=== PATIENT | female | born 1985 | race Two or more races ===

== ENCOUNTER 2024-05-07 00:04 | Inpatient (IN) | payer MEDICAID, OTHER ==
[~2024-05-07] VITALS: Ht 157.5 cm; Wt 113.1 kg
[2024-05-07] MEDS: SODIUM CHLORIDE 0.9% 1,000 ML IV ONE (01:15)
[2024-05-07] MEDS: IOHEXOL 300 MG/ML 100ML BOTTLE IJ ONE (01:33)
[2024-05-07 01:34] LABS: Urine Bacteria FEW /hpf (None Seen); Urine Blood Negative /uL (Negative); Urine Clarity Clear (Clear); Urine Color Light-Yellow (Yellow); Urine Protein, UAD TRACE (Negative); Urine Specific Gravity 1.016 (1.001-1.035); Urine Urobilinogen Normal (Negative); Urine WBC 2 /hpf (0 - 5)
[2024-05-07 01:35] LABS: Basophils # (auto) 0.1 10 ^3/uL (0-0.2); Basophils % (auto) 0.9 % (0.0-2.0); Eosinophils # (auto) 0.5 10 ^3/uL (0-0.8); Hematocrit 41.6 % (36.0-46.0); Hemoglobin 14.2 g/dL (12.2-16.2); Lymphocytes % (auto) 27.8 % (10.0-50.0); Mean Corpuscular Hemoglobin 29.4 pg (28.0-32.0); Mean Corpuscular Hgb Conc. 34.2 g/dL (32.0-36.0); Monocytes # (auto) 0.6 10 ^3/uL (0-1.3); Monocytes % (auto) 5.5 % (0.0-12.0); Neutrophils # (auto) 6.6 10 ^3/uL (1.6-8.6); Neutrophils % (auto) 60.8 % (37.0-80.0); Platelet Count (auto) 404 10^3/uL (140-450); Red Blood Cells 4.84 10^6/uL (4.0-5.20); Red Cell Distribution Width 13.1 % (11.8-14.3); White Blood Cell 10.8 10^3/uL (4.4-10.8)
[2024-05-07 01:56] LABS: Alanine Aminotransferase 61 U/L (7-40); Albumin 4.5 g/dL (3.2-4.8); Alkaline Phosphatase 112 U/L (46-116); Anion Gap 6 (5-15); Aspartate Aminotransferase 50 U/L (13-40); BUN/Creatinine Ratio 11.5 (10.0-20.0); Bilirubin, Total 0.2 mg/dL (0.2-1.0); Blood Urea Nitrogen 9 mg/dL (9-23); Calcium 9.6 mg/dL (8.7-10.4); Carbon Dioxide 25 mmol/L (20-30); Chloride 103 mmol/L (98-107); Glucose 267 mg/dL (74-106); Potassium 3.9 mmol/L (3.5-5.1); Sodium 134 mmol/L (136-145); Total Protein 7.8 g/dL (5.7-8.2)
[2024-05-07] MEDS: ONDANSETRON HCL 4 MG/2 ML VIAL IV ONE (02:40)
[2024-05-07] MEDS: FAMOTIDINE (10MG/ML) 2ML VL IV ONE (02:40)
[2024-05-07] MEDS: MORPHINE SULFATE 4 MG/ML SYR/VIAL IV ONE (02:40)
[2024-05-07 04:33] VITALS: O2SAT 95
[2024-05-07] MEDS ORDERED: DEXTROSE (50%) 50ML SYRG IV PRN (09:15)
[2024-05-07] MEDS ORDERED: PANTOPRAZOLE 40 MG/10 ML VIAL INJ IV ONE (09:15)
[2024-05-07] MEDS ORDERED: DOCUSATE SOD 100 MG CAP PO PRN (09:15)
[2024-05-07] MEDS: SODIUM CHLORIDE 0.9% 1,000 ML IV SCH (09:39)
[2024-05-07] MEDS: MORPHINE SULFATE INJ 2 MG/ml SYRG IV PRN (09:40)
[2024-05-07] MEDS: ONDANSETRON HCL 4 MG/2 ML VIAL IV PRN (09:40)
[2024-05-07 09:47] VITALS: PULSE 79; RESP 19; O2SAT 97
[2024-05-07] MEDS ORDERED: NITROGLYCERIN 0.4 MG SL TAB SL PRN (10:45)
[2024-05-07] MEDS: InsuLIN REG 1unit/0.01ml Soln (100units/ml) SC SCH (10:52)
[2024-05-07] MEDS: ACCU-CHEK COMFORT CURVE STRIP VI SCH (10:54)
[2024-05-07 12:13] LABS: Triglycerides 331 mg/dL (< 150)
[2024-05-07 12:14] LABS: LDL Cholesterol 224 mg/dL (< 100)
[2024-05-07 12:15] LABS: Cholesterol 300 mg/dL (< 200); HDL Cholesterol 37 mg/dL (40-59)
[2024-05-07 12:16] LABS: Lipase 41 U/L (12-53)
[2024-05-07 14:08] LABS: INR 0.97 (0.9-1.15); Partial Thromboplastin Time 26.5 SEC (24.5-34.5); Prothrombin Time 10.5 sec (9.3-11.8)
[2024-05-07] MEDS: hydrALAZINE HCL 20 MG/ML VL IV PRN (14:39)
[2024-05-07 16:11] LABS: Amphetamine Screen, Urine Neg (NEGATIVE); Barbiturate Scree,Urine Neg (NEGATIVE); Benzodiazephine Screen, Urine Neg (NEGATIVE); Cocaine Screen, Urine Neg (NEGATIVE); Opiate Scree,Urine Neg (NEGATIVE)
[2024-05-07 16:12] LABS: Cannabinoid Screen, Urine Pos (NEGATIVE); Phencyclidine Screen, Urine Neg (NEGATIVE)
[2024-05-07 20:20] VITALS: BP 148/88; PULSE 106; RESP 20; TEMP 98.1; O2SAT 97
[2024-05-07 21:44] VITALS: PULSE 106; RESP 20; O2SAT 97
[2024-05-07] MEDS ORDERED: PANTOPRAZOLE 40 MG/10 ML VIAL INJ IV SCH (22:00)
[2024-05-07 22:14] LABS: Hematocrit 42.1 % (36.0-46.0); Hemoglobin 14.5 g/dL (12.2-16.2)
[2024-05-07] MEDS: PNEUMOCOCCAL VACC POLYS 25 MCG/0.5 ML VIAL IM ONE (22:15)
[2024-05-07] MEDS ORDERED: ALBUAER3 IN (22:17)
[2024-05-07] MEDS: GOLYTELY 4L KIT PO ONE (22:30)
[2024-05-08] VITALS (8 sets, daily range): BP systolic 137–159; BP diastolic 79–94; PULSE 98–110; RESP 18–20; TEMP 97.8–98.3; O2SAT 93–97
[2024-05-08] MEDS: GOLYTELY 4L KIT PO ONE (06:00)
[2024-05-08] MEDS: MAGNESIUM CITRATE SOLUTION 300 ML BTL PO ONE (06:00)
[2024-05-08 07:46] LABS: Alanine Aminotransferase 59 U/L (7-40); Albumin 4.5 g/dL (3.2-4.8); Alkaline Phosphatase 97 U/L (46-116); Anion Gap 13 (5-15); Aspartate Aminotransferase 63 U/L (13-40); BUN/Creatinine Ratio 9.7 (10.0-20.0); Bilirubin, Total 0.6 mg/dL (0.2-1.0); Blood Urea Nitrogen 6 mg/dL (9-23); Calcium 9.2 mg/dL (8.7-10.4); Carbon Dioxide 21 mmol/L (20-30); Chloride 100 mmol/L (98-107); Glucose 181 mg/dL (74-106); Potassium 3.7 mmol/L (3.5-5.1); Sodium 134 mmol/L (136-145); Total Protein 7.7 g/dL (5.7-8.2)
[2024-05-08 07:49] LABS: Basophils # (auto) 0 10 ^3/uL (0-0.2); Basophils % (auto) 0.4 % (0.0-2.0); Eosinophils # (auto) 0.3 10 ^3/uL (0-0.8); Eosinophils % (auto) 2.7 % (0.0-7.0); Hematocrit 40.4 % (36.0-46.0); Hemoglobin 14.1 g/dL (12.2-16.2); Lymphocytes # (auto) 1.6 10 ^3/uL (0.4-5.4); Lymphocytes % (auto) 15.7 % (10.0-50.0); Mean Corpuscular Hemoglobin 29.9 pg (28.0-32.0); Mean Corpuscular Volume 85.4 fL (80.0-100.0); Monocytes # (auto) 0.5 10 ^3/uL (0-1.3); Monocytes % (auto) 4.5 % (0.0-12.0); Neutrophils # (auto) 7.8 10 ^3/uL (1.6-8.6); Neutrophils % (auto) 76.7 % (37.0-80.0); Platelet Count (auto) 387 10^3/uL (140-450); Red Blood Cells 4.73 10^6/uL (4.0-5.20); Red Cell Distribution Width 13.2 % (11.8-14.3); White Blood Cell 10.2 10^3/uL (4.4-10.8)
[2024-05-08] MEDS: SODIUM CHLORIDE 0.9% 1,000 ML IV SCH (08:15)
[2024-05-08 09:50] LABS: Hematocrit 41.8 % (36.0-46.0); Hemoglobin 14.7 g/dL (12.2-16.2)
[2024-05-08] MEDS: PANTOPRAZOLE 40 MG/10 ML VIAL INJ IV SCH (10:00)
[2024-05-08] MEDS ORDERED: NALOXONE HCL 0.4 MG/ML VIAL ONE (11:19)
[2024-05-08] MEDS ORDERED: SODIUM CHLORIDE LOCK 10 ML ONE (11:19)
[2024-05-08] MEDS ORDERED: FLUMAZENIL 0.1 MG/ML INJ 10ML MDV IV ONE (11:19)
[2024-05-08] MEDS: MIDAZOLAM HCL 5 MG/ML-1ML VIAL ONE (12:14)
[2024-05-08] MEDS: diphenhdrAMINE HCL 50 MG/1 ML VL ONE (12:14)
[2024-05-08] MEDS: fentaNYL CITRATE 100 MCG/2 ML VL ONE (12:14)
[2024-05-08] MEDS ORDERED: DEXTROSE (50%) 50ML SYRG IV PRN (14:45)
[2024-05-08] MEDS ORDERED: ATOR40TA52 PO (17:16)
[2024-05-08] MEDS ORDERED: LINA5TAB PO (17:16)
[2024-05-08] MEDS ORDERED: METF-489 PO (17:16)
[2024-05-08] MEDS ORDERED: PANT40T PO (17:16)
[2024-05-08] MEDS ORDERED: LISI2.5T47 PO (17:20)
[2024-05-08] MEDS: InsuLIN REG 1unit/0.01ml Soln (100units/ml) SC SCH (17:50)
[2024-05-08] MEDS: ACCU-CHEK COMFORT CURVE STRIP VI SCH (17:50)
[2024-05-08] MEDS: ATORVASTATIN 20 MG TAB PO SCH (21:08)
[2024-05-08 22:02] LABS: Hematocrit 41.7 % (36.0-46.0); Hemoglobin 14.1 g/dL (12.2-16.2)
[2024-05-09 01:00] VITALS: BP 158/93; PULSE 99; RESP 19; TEMP 97.6; O2SAT 96
[2024-05-09 05:00] VITALS: BP 136/83; PULSE 102; RESP 20; TEMP 97.9; O2SAT 96
[2024-05-09 07:27] LABS: Basophils # (auto) 0 10 ^3/uL (0-0.2); Basophils % (auto) 0.5 % (0.0-2.0); Eosinophils # (auto) 0.3 10 ^3/uL (0-0.8); Eosinophils % (auto) 3.7 % (0.0-7.0); Hematocrit 40.6 % (36.0-46.0); Hemoglobin 13.8 g/dL (12.2-16.2); Lymphocytes % (auto) 23.2 % (10.0-50.0); Mean Corpuscular Hemoglobin 29.1 pg (28.0-32.0); Mean Corpuscular Volume 85.8 fL (80.0-100.0); Monocytes # (auto) 0.5 10 ^3/uL (0-1.3); Monocytes % (auto) 5.4 % (0.0-12.0); Neutrophils # (auto) 5.9 10 ^3/uL (1.6-8.6); Neutrophils % (auto) 67.2 % (37.0-80.0); Nucleated Red Blood Cells % 0.1 %; Platelet Count (auto) 365 10^3/uL (140-450); Red Blood Cells 4.74 10^6/uL (4.0-5.20); Red Cell Distribution Width 13.2 % (11.8-14.3); White Blood Cell 8.8 10^3/uL (4.4-10.8)
[2024-05-09 07:44] LABS: Alanine Aminotransferase 55 U/L (7-40); Albumin 4.1 g/dL (3.2-4.8); Alkaline Phosphatase 92 U/L (46-116); Anion Gap 7 (5-15); Aspartate Aminotransferase 65 U/L (13-40); BUN/Creatinine Ratio 10.1 (10.0-20.0); Bilirubin, Total 0.6 mg/dL (0.2-1.0); Blood Urea Nitrogen 7 mg/dL (9-23); Carbon Dioxide 26 mmol/L (20-30); Chloride 103 mmol/L (98-107); Glucose 163 mg/dL (74-106); Potassium 3.5 mmol/L (3.5-5.1); Sodium 136 mmol/L (136-145); Total Protein 7.3 g/dL (5.7-8.2)
[2024-05-09 08:20] VITALS: PULSE 98; RESP 18; O2SAT 96
[2024-05-09 09:00] VITALS: BP 150/78; PULSE 98; RESP 17; TEMP 98.2; O2SAT 96
[2024-05-09 09:33] LABS: Hepatitis B Surface Antigen Negative (Negative)
[2024-05-09 09:55] LABS: Hepatitis B Core IgM Negative
[2024-05-09 09:56] LABS: Hepatitis C Antibody Negative (Negative)
[2024-05-09 11:38] LABS: Free T3 2.68 pg/mL (2.3-4.2)
[2024-05-09 11:39] LABS: Free T4 (Free Thyroxine) 1.2 ng/dL (0.89-1.76)
[2024-05-09 11:58] VITALS: BP 150/91; PULSE 98; RESP 17; TEMP 36.8; O2SAT 96
[2024-05-09 13:26] VITALS: BP 143/93; PULSE 100; RESP 17; TEMP 97.9; O2SAT 97
[2024-05-09 16:34] LABS: Hepatitis A Ab IgM Negative
== END 2024-05-09 14:30 | disposition home or self-care (01) ==
LOC: ER 00:04 → OVERFLOW 10:37 → CENTRAL 10:37
PROVIDERS: ADMIT Internal Medicine; ATTEND Internal Medicine
PROC: 0DJD8ZZ Inspection of Lower Intestinal Tract, Via Natural or Artificial Opening Endoscopic (ICD-10-PCS; principal; 2024-05-08 12:10)
DX: K80.50 Calculus of bile duct without cholangitis or cholecystitis without obstruction (principal); K76.0 Fatty (change of) liver, not elsewhere classified; E11.9 Type 2 diabetes mellitus without complications; K64.8 Other hemorrhoids; E78.5 Hyperlipidemia, unspecified; E66.01 Morbid (severe) obesity due to excess calories; K57.30 Diverticulosis of large intestine without perforation or abscess without bleeding; J45.909 Unspecified asthma, uncomplicated; I16.0 Hypertensive urgency; K21.9 Gastro-esophageal reflux disease without esophagitis; Z88.1 Allergy status to other antibiotic agents; Z88.8 Allergy status to other drugs, medicaments and biological substances; Z68.42 Body mass index [BMI] 45.0-49.9, adult; Z83.719 Family history of colon polyps, unspecified; Z98.891 History of uterine scar from previous surgery
CPT/HCPCS: 36415; 45378; 74177; 76705; 80053; 80061; 80074; 80307; 81001; 81025; 82270; 82962; 83036; 83690; 83735; 84439; 84443; 84481; 85014; 85018; 85025; 85048; 85610; 85730; 96361; 96374; 96375; 96376; G0378; J1815; J2250; J2405; J2470; J3490

== ENCOUNTER 2024-10-27 23:08 | Emergency (ER) | payer MEDICAID ==
[~2024-10-27] VITALS: Ht 162.6 cm; Wt 99.5 kg
[~2024-10-27 23:08] MED LIST: ALBUAER3 IN; ATOR40TA52 PO; LINA5TAB PO; LISI2.5T47 PO; METF-489 PO; PANT40T PO
[2024-10-27 23:41] VITALS: BP 137/78; PULSE 96; RESP 14; TEMP 97.9; O2SAT 94
[2024-10-28] MEDS: KETOROLAC TROMETH 60MG/2ML VIAL IM ONE (00:11)
[2024-10-28] MEDS: OXYCODONE W/ ACETAMINOPHEN 5/325MG TABLET PO ONE (00:11)
--- NOTE | 2024-10-28 00:39 | ED.PDOC ---
Back pain HPI HPI Comments PT WAS GETTING OFF THE FLOOR, FELT A "POP" IN HER LOWER BACK, CAUSING HER LEGS TO BUCKLE, PT BECAME DIZZY. CURRENTLY NO DIZZINESS, PT C/O MORE RIGHT BACK PAIN, RADIATING TO THE RIGHT BUTTOCK.. Denies numbness, weakness, loss of bowel bladder control, or saddle anesthesia. Chief Complaint: Back Pain Time Seen by MD: 23:24 Reviewed Notes: Nurses Notes, Medications, Allergies Allergies: Coded Allergies: Erythromycin (Verified Allergy, Unknown, 05/07/24) Montelukast (Verified Allergy, Unknown, 05/07/24) Nifedipine (Verified Allergy, Unknown, 05/07/24) Sulfisoxazole (Verified Allergy, Unknown, 05/07/24) Home Meds Active Scripts Lisinopril (Lisinopril) 2.5 Mg Tab, 5 MG PO DAILY for 30 Days, #60 TAB 2 Refills Prov:CHAVO KAY RESIDENT 05/08/24 Pantoprazole Sodium Sesquihydr (Pantoprazole Sodium) 40 Mg Tab, 40 MG PO DAILY for 30 Days, #30 TAB 2 Refills Prov:CHAVO KAY [facility] 05/08/24 Linagliptin Base (TRADJENTA) 5 Mg Tab, 1 TAB PO DAILY for 30 Days, #30 TAB 2 Refills Prov:CHAVO KAY [facility] [place] 05/08/24 Atorvastatin Calcium (ATORVASTATIN CALCIUM) 40 Mg Tab, 20 MG PO DAILY for 30 Days, #15 TAB 2 Refills Prov:CHAVO KAY [facility] [place] 05/08/24 Metformin Hydrochloride (METFORMIN HCL ER) 500 Mg Tab, 1 TAB PO DAILY for 30 Days, #30 TAB 2 Refills Prov:CHAVO KAY [facility] [place] 05/08/24 Reported Medications Albuterol Sulfate (VENTOLIN MDI) 90 Mcg Ih, 90 MCG IN, INH 05/07/24 Information Source: Patient Mode of Arrival: Ambulatory Past Medical History PAST MEDICAL HISTORY: Asthma 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: No Pertinent ELEVATOR EXAMINER AND ADJUSTER History Family History Family History: Reviewed,noncontributory to illness, No family hx of Cancer, No family hx of DM, No family hx of Heart jing, No family hx of HTN, No family hx ofKidney jing, No family hx of Liver jing, No family hx of Lung jing, No family hx of Stroke Social History Smoker: Non-Smoker Alcohol: Denies ETOH Use Drugs: Denies Drug Use Lives In: Home Constitutional: denies: chills, diaphoresis, fatigue, fever, malaise, sweats, weakness, others EENTM: denies: blurred vision, double vision, ear bleeding, ear discharge, ear drainage, ear pain, ear ringing, eye pain, eye redness, hearing loss, mouth pain, mouth swelling, nasal discharge, nose bleeding, nose congestion, nose p ain, photophobia, tearing, throat pain, throat swelling, voice changes, others Respiratory: denies: cough, hemoptysis, orthopnea, SOB at rest, shortness of breath, SOB with excertion, stridor, wheezing, others Cardiovascular: denies: chest pain, dizzy spells, diaphoresis, Dyspnea on exertion, edema, irregular heart beat, left arm pain, lightheadedness, palpitations, PND, syncope, others Gastrointestinal: denies: abdomen distended, abdominal pain, blood streaked bowels, constipated, diarrhea, dysphagia, difficulty swallowing, hematemesis, melena, nausea, poor appetite, poor fluid intake, rectal bleeding, rectal pain, vomiting, others Genitourinary: denies: abnormal vagina bleeding, burning, dyspareunia, dysuria, flank pain, frequency, hematuria, incontinence, pain, , vagina discharge, urgency, others Neurological: denies: dizziness, fainting, headache, left sided numbness, left sided weakness, numbness, paresthesia, pre-existing deficit, right sided numbness, right sided weakness, seizure, speech problems, tingling, tremors, weakness, others Musculoskeletal: reports: back pain; denies: gout, joint pain, joint swelling, muscle pain, muscle stiffness, neck pain, others Integumetry: denies: bruises, change in color, change in hair/nails, dryness, laceration, lesions, lumps, rash, wounds, others Allergic/Immunocompromised: denies: Difficulty Healing, Frequent Infections, Hives, Itching, others Hematologic/Lymphatic: denies: anemia, blood clots, easy bleeding, easy bruising, swollen glands, others Psychiatric: denies: anxiety, bipolar disorder, depression, hopeless, panic disorder, schizophrenia, sleepless, suicidal, others Physical Exam General Appearance: No Apparent Distress, Normal HEENT: Pharynx Normal Neck: Full Range of Motion, Normal Respiratory: Lungs Clear, No Respiratory Distress, Normal Breath Sounds Cardiovascular: No Edema, No Murmur, Normal Peripheral Pulses, Regular Rate/Rhythm Breast Exam: Deferred Gastrointestinal: Non Tender, Soft Genitalia: Deferred Pelvic: Deferred Rectal: Deferred Extremities: Normal capillary refill, Normal inspection, Normal range of motion, Non-tender, No pedal edema Musculoskeletal : Location: Right Extremity Location: Back (No tenderness palpated over L1 through L5 without crepitus and step-offs. Noted to right lateral lower back musculature with noted spasms. Negative straight leg raise bilateral negative footdrop strength sensory motion intact positive pedal pulses) Apperance: Normal Neurologic: Alert, hospital carrier II-XII nml as Tested, No Motor Deficits, Normal Affect, Normal Mood, No Sensory Deficits Cerebellar Function: Normal Reflexes: Normal Skin: Dry, Normal Color, Warm Lymphatic: No Adenopathy Was a procedure done? Was a procedure done?: No Back Pain Differential Dx Differential Diagnosis: Fracture, Musculoskeletal Pain, Strain X-Ray, Labs, Meds, VS Vital Signs Date Time Temp Pulse Resp B/P (MAP) Pulse Ox O2 Delivery O2 Flow Rate FiO2 10/27/24 23:41 97.9 96 14 137/78 (97) 94 97.9 10/27/24 23:41 96 14 94 Room Air 10/27/24 23:20 97.9 96 14 137/78 (97) 94 Current Medications Medications (Trade) Dose Ordered Sig/Justice Route Start Time Stop Time Status Last Admin Ketorolac Tromethamine (Toradol Injection) 60 mg ONCE ONCE IM 10/27/24 23:45 10/27/24 23:46 DC 10/28/24 00:11 Oxycodone/ Acetaminophen (Percocet 5/ 325MG Tablet) 1 tab ONCE ONCE PO 10/27/24 23:45 10/27/24 23:46 DC 10/28/24 00:11 X-Ray, Labs, Meds, VS Comment NORMAL X RAY RESULT: INTERPRETED BY ME. NO ACUTE FINDINGS. NO FRACTURES OR DISLOCATION. PENDING RADIOLOGIST REPORT PATIENT GIVEN TORADOL 60 MG IM AND PERCOCET 5 MG P.O.. REPORTS IMPROVEMENT IN PAIN AND FUNCTION REQUESTING DISCHARGE AT THIS TIME. SCRIPT MUSCLE RELAXER AND MEDROL DOSEPAK. ADVISED PATIENT THE IMPORTANCE OF FOLLOWING UP WITH HER PCP IN 1-2 DAYS SOONER IF PAIN WORSENS CONSIDER FURTHER IMAGING SUCH MRI CONSIDER REFERRAL FOR PHYSICAL THERAPY. PATIENT AGREES WITH DISCHARGE PLAN OF CARE INDICATES UNDERSTANDING. Time of 1ST Reevaluation: 00:58 Reevaluation 1ST: Improved Patient Education/Counseling: Diagnosis, Treatment, Prognosis, Need For Follow Up Family Education/Counseling: No Family Present Departure 1 Departure Time of Disposition: 00:58 Impression: Primary Impression: Lumbar sprain Qualified Codes: S33.5XXA - Sprain of ligaments of lumbar spine, initial encounter Disposition: HOME / SELF CARE / HOMELESS Condition: Stable e-Prescriptions Tizanidine Hydrochloride (Tizanidine Hcl) 4 Mg Tab 4 MG PO BID PRN for 5 Days, #10 TAB Prov: NANETTE THOMAS 10/28/24 Methylprednisolone (Medrol Dosepak) 4 Mg Silas 4 MG PO UD for 6 Days, #21 TAB UAD Prov: NANETTE THOMAS 10/28/24 Discharged With: Significant Other Critical Care Note Critical Care Time?: No Stability Stability form required: No NANETTE THOMAS Oct 28, 2024 00:39
--- NOTE | 2024-10-28 00:48 | DVH ---
INDICATION: injury/pain COMPARISON: None TECHNIQUE: AP and lateral radiographs of the lumbar spine. FINDINGS: There is a normal alignment of the lumbar spine. The lumbar vertebral bodies, T11 and T12 are normal in appearance with no compression fracture. The intervertebral disc spaces are preserved. Facet and S I joints appear unremarkable. IMPRESSION: No abnormality demonstrated.
[2024-10-28] MEDS ORDERED: TIZA-142 PO (00:57)
[2024-10-28] MEDS ORDERED: METH4PAK PO (00:57)
== END 2024-10-28 01:05 | disposition home or self-care (01) ==
LOC: ER 23:08
DX: S33.5XXA Sprain of ligaments of lumbar spine, initial encounter (principal); J45.909 Unspecified asthma, uncomplicated; Z79.84 Long term (current) use of oral hypoglycemic drugs; Z79.899 Other long term (current) drug therapy; Z98.890 Other specified postprocedural states; Z88.1 Allergy status to other antibiotic agents; Z88.2 Allergy status to sulfonamides
CPT/HCPCS: 72100; 96372; 99283; J1885

== ENCOUNTER 2024-12-06 21:23 | Emergency (ER) | payer MEDICAID ==
[~2024-12-06] VITALS: Ht 162.6 cm; Wt 95.5 kg
--- NOTE | 2024-12-06 23:52 | ED.PDOC ---
Eye-HPI HPI Comments Pt c/o left ear pain since 0400 this morning. Pt says her current pain is 7/10, has not taken any medications. Reports hearing is muffled. Denies any other symptoms Chief Complaint: Earache Time Seen by MD: 21:28 Reviewed Notes: Nurses Notes, Medications, Allergies Allergies: Coded Allergies: Erythromycin (Verified Allergy, Unknown, 05/07/24) Montelukast (Verified Allergy, Unknown, 05/07/24) Nifedipine (Verified Allergy, Unknown, 05/07/24) Sulfisoxazole (Verified Allergy, Unknown, 05/07/24) Home Meds Active Scripts Methylprednisolone (Medrol Dosepak) 4 Mg Silas, 4 MG PO UD for 6 Days, #21 TAB UAD Prov:[facility] 12/06/24 Cefdinir (Cefdinir) 300 Mg Cap, 1 CAP PO BID for 7 Days, #14 CAP Prov:[facility] 12/06/24 Lisinopril (Lisinopril) 2.5 Mg Tab, 5 MG PO DAILY for 30 Days, #60 TAB 2 Refills Prov:CHAVO KAY [facility] 05/08/24 Pantoprazole Sodium Sesquihydr (Pantoprazole Sodium) 40 Mg Tab, 40 MG PO DAILY for 30 Days, #30 TAB 2 Refills [facility] 05/08/24 Linagliptin Base (TRADJENTA) 5 Mg Tab, 1 TAB PO DAILY for 30 Days, #30 TAB 2 Refills Prov[facility] 05/08/24 Atorvastatin Calcium (ATORVASTATIN CALCIUM) 40 Mg Tab, 20 MG PO DAILY for 30 Days, #15 TAB 2 Refills Prov:CHAVO KAY [facility] 05/08/24 Metformin Hydrochloride (METFORMIN HCL ER) 500 Mg Tab, 1 TAB PO DAILY for 30 Days, #30 TAB 2 Refills Prov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: No Pertinent HR PAYROLL COORDINATOR History Family History Family History: Reviewed,noncontributory to illness, No family hx of Cancer, No family hx of DM, No family hx of Heart jing, No family hx of HTN, No family hx ofKidney jing, No family hx of Liver jing, No family hx of Lung jing, No family hx of Stroke Social History Smoker: Non-Smoker Alcohol: Denies ETOH Use Drugs: Denies Drug Use Lives In: Home Constitutional: denies: chills, diaphoresis, fatigue, fever, malaise, sweats, weakness, others EENTM: reports: ear pain; denies: blurred vision, double vision, ear bleeding, ear discharge, ear drainage, ear ringing, eye pain, eye redness, hearing loss, mouth pain, mouth swelling, nasal discharge, nose bleeding, nose congestion, nose pain, photophobia, tearing, throat pain, throat swelling, voice changes, others Respiratory: denies: cough, hemoptysis, orthopnea, SOB at rest, shortness of breath, SOB with excertion, stridor, wheezing, others Cardiovascular: denies: chest pain, dizzy spells, diaphoresis, Dyspnea on exertion, edema, irregular heart beat, left arm pain, lightheadedness, palpitations, PND, syncope, others Gastrointestinal: denies: abdomen distended, abdominal pain, blood streaked bowels, constipated, diarrhea, dysphagia, difficulty swallowing, hematemesis, melena, nausea, poor appetite, poor fluid intake, rectal bleeding, rectal pain, vomiting, others Genitourinary: denies: abnormal vagina bleeding, burning, dyspareunia, dysuria, flank pain, frequency, hematuria, incontinence, pain, , vagina discharge, urgency, others Neurological: denies: dizziness, fainting, headache, left sided numbness, left sided weakness, numbness, paresthesia, pre-existing deficit, right sided numbness, right sided weakness, seizure, speech problems, tingling, tremors, weakness, others Musculoskeletal: denies: back pain, gout, joint pain, joint swelling, muscle pain, muscle stiffness, neck pain, others Integumetry: denies: bruises, change in color, change in hair/nails, dryness, laceration, lesions, lumps, rash, wounds, others Allergic/Immunocompromised: denies: Difficulty Healing, Frequent Infections, Hives, Itching, others Hematologic/Lymphatic: denies: anemia, blood clots, easy bleeding, easy bruising, swollen glands, others Endocrine: denies: excessive hunger, excessive sweating, excessive thirst, excessive urination, flushing, intolerance to cold, intolerance to heat, unexplained weight gain, unexplained weight loss, others Psychiatric: denies: anxiety, bipolar disorder, depression, hopeless, panic disorder, schizophrenia, sleepless, suicidal, others Physical Exam General Appearance: No Apparent Distress, Normal HEENT: Pharynx Normal, TM Abnormal (L) (TM ERYTHEMIC AND BULGING INTACT NO NOTED DRAINAGE EAR CANAL SWELLING OR DRAINAGE) Neck: Full Range of Motion, Non-Tender Respiratory: Lungs Clear, No Respiratory Distress, Normal Breath Sounds Cardiovascular: No Murmur, Normal Peripheral Pulses, Regular Rate/Rhythm Breast Exam: Deferred Gastrointestinal: No Organomegaly, Non Tender, No Pulsatile Mass, Normal Bowel Sounds, Soft Genitalia: Deferred Pelvic: Deferred Rectal: Deferred Extremities: Normal capillary refill, Normal inspection, Normal range of mo tion, Non-tender, No pedal edema Musculoskeletal : Apperance: Normal Neurologic: Alert, long term care social worker II-XII nml as Tested, No Motor Deficits, Normal Affect, Normal Mood, No Sensory Deficits Cerebellar Function: Normal Reflexes: Normal Skin: Dry, Normal Color, Warm Lymphatic: No Adenopathy Was a procedure done? Was a procedure done?: No EENT DIFF Eye: N/A Ear: Foreign Body, Otitis Externa, Barotrauma, Perforation, Pharyngitis X-Ray, Labs, Meds, VS Vital Signs Date Time Temp Pulse Resp B/P (MAP) Pulse Ox O2 Delivery O2 Flow Rate FiO2 12/06/24 23:54 98.6 100 13 132/90 (104) 98 98.6 12/06/24 23:54 100 13 98 Room Air 12/06/24 21:33 98.3 115 18 129/84 (99) 95 98.3 Current Medications Medications (Trade) Dose Ordered Sig/Justice Route Start Time Stop Time Status Last Admin Ketorolac Tromethamine (Toradol Injection) 60 mg ONCE ONCE IM 12/07/24 00:00 12/07/24 00:01 DC 12/07/24 00:06 Acetaminophen/ Hydrocodone Bitart ([place] 5/325MG Tab) 1 tab ONCE ONCE PO 12/07/24 00:00 12/07/24 00:01 DC 12/07/24 00:07 X-Ray, Labs, Meds, VS Comment PATIENT GIVEN TORADOL 60 MG IM AND NORCO 5 MG P.O. REPORTS IMPROVEMENT IN PAIN REQUESTING DISCHARGE AT THIS TIME. CEFDINIR AND MEDROL DOSEPAK. TAKE MEDICATIONS PRESCRIBED SIDE EFFECTS DISCUSSED. FOLLOW UP WITH YOUR PCP IN 2- 3 DAYS. ER RETURN PRECAUTIONS GIVEN PATIENT INDICATES UNDERSTANDING AGREES WITH DISCHARGE PLAN OF CARE. Time of 1ST Reevaluation: 23:55 Reevaluation 1ST: Improved Patient Education/Counseling: Diagnosis, Treatment, Prognosis, Need For Follow Up Family Education/Counseling: Diagnosis, Treatment, Prognosis, Need For Follow U p Departure 1 Departure Time of Disposition: 23:52 Impression: Primary Impression: Otitis media Qualified Codes: H66.92 - Otitis media, unspecified, left ear Disposition: 04 INTERMEDIATE CARE FACILITY Condition: Stable e-Prescriptions Methylprednisolone (Medrol Dosepak) 4 Mg Silas 4 MG PO UD for 6 Days, #21 TAB UAD Prov: NANETTE THOMAS 12/06/24 Cefdinir (Cefdinir) 300 Mg Cap 1 CAP PO BID for 7 Days, #14 CAP Prov: NANETTE THOMAS 12/06/24 Discharged With: Significant Other Critical Care Note Critical Care Time?: No Stability Stability form required: No NANETTE THOMAS Dec 06, 2024 23:52
[2024-12-06 23:54] VITALS: BP 132/90; PULSE 100; RESP 13; TEMP 98.6; O2SAT 98
[2024-12-06] MEDS ORDERED: CEFD300C2 PO (23:54)
[2024-12-06] MEDS ORDERED: METH4PAK PO (23:54)
[2024-12-07] MEDS: KETOROLAC TROMETH 60MG/2ML VIAL IM ONE (00:06)
[2024-12-07] MEDS: HYDROcodone-ACET 5/325MG TAB PO ONE (00:07)
== END 2024-12-07 00:22 | disposition home or self-care (01) ==
LOC: ER 21:23
DX: H66.92 Otitis media, unspecified, left ear (principal); J45.909 Unspecified asthma, uncomplicated; Z79.899 Other long term (current) drug therapy; Z88.1 Allergy status to other antibiotic agents; Z88.2 Allergy status to sulfonamides; Z79.84 Long term (current) use of oral hypoglycemic drugs
CPT/HCPCS: 96372; 99283; J1885

== ENCOUNTER 2025-02-04 13:02 | Emergency (ER) | payer MEDICAID ==
[~2025-02-04] VITALS: Ht 162.6 cm; Wt 99.0 kg
--- NOTE | 2025-02-04 15:42 | ED.PDOC ---
Musculoskeletal HPI Comments Portions of this chart may have been created with an modal fluency direct voice recognition software. Occasional wrong-word or "sound-alike" substitutions may have occurred due to the inherent limitations of voice recognition software. Please read the chart carefully and recognize, using context, where these substitutions have occurred. 39 y/o F, presents to the ED for CC of lower extremity. Patient states, she has been experiencing left ankle pain following, twisting it yesterday (02/03/25). Patient reports, that as of this morning she is unable to bear weight onto her left leg. Patient comments, taking 600mg of Ibuprofen to help alleviate pain with no results. No other symptoms or modifying factors present at this time. Started 02/03/25 Not able to bear weight Denies previous surgeries to the ankle Denies redness or swelling around the ankle Denies fever chills night sweats nausea vomiting Chief Complaint: Lower Extremity Time Seen by MD: 15:00 Primary Care Provider: LUNA Reviewed Notes: Nurses Notes, Medications, Allergies Allergies: Coded Allergies: Erythromycin (Verified Allergy, Unknown, 05/07/24) Montelukast (Verified Allergy, Unknown, 05/07/24) Nifedipine (Verified Allergy, Unknown, 05/07/24) Sulfisoxazole (Verified Allergy, Unknown, 05/07/24) Home Meds Active Scripts Ibuprofen (Ibuprofen) 800 Mg Tab, 1 TAB PO TID for 10 Days, #30 TAB 0 Refills Prov:JOYCE VARGAS [employer]OR[employer] II ASSEMBLER 02/04/25 Lisinopril (Lisinopril) 2.5 Mg Tab, 5 MG PO DAILY for 30 Days, #60 TAB 2 Refills Prov:CHAVO KAY RESIDENT 05/08/24 Pantoprazole Sodium Sesquihydr (Pantoprazole Sodium) 40 Mg Tab, 40 MG PO DAILY for 30 Days, #30 TAB 2 Refills Prov:CHAVO KAY RESIDENT 05/08/24 Linagliptin Base (TRADJENTA) 5 Mg Tab, 1 TAB PO DAILY for 30 Days, #30 TAB 2 Refills Prov:CHAVO KAY RESIDENT 05/08/24 Atorvastatin Calcium (ATORVASTATIN CALCIUM) 40 Mg Tab, 20 MG PO DAILY for 30 Days, #15 TAB 2 Refills Prov:CHAVO KAY RESIDENT 05/08/24 Metformin Hydrochloride (METFORMIN HCL ER) 500 Mg Tab, 1 TAB PO DAILY for 30 Days, #30 TAB 2 Refills Prov:CHAVO KAY RESIDENT 05/08/24 Reported Medications Albuterol Sulfate (VENTOLIN MDI) 90 Mcg Ih, 90 MCG IN, INH 05/07/24 Information Source: Patient Mode of Arrival: Ambulatory Location: Left Extremity Location: Ankle Timing: Days Prehospital treatment: None Severity: Moderate Able to Move Extremity: Yes Bear Weight: No Pain: Moderate Mechanism: Twisting Circumstances: Accident Onset of Symptoms: After Trauma Symptoms: Pain DVT Risk Factors: NONE Last Tetanus: Unknown Associated signs and symptoms: Ankle pain, Foot pain Past Medical History PAST MEDICAL HISTORY: Asthma Surgical History: NEPHROLOGY NURSE History: No Pertinent NEPHROLOGY NURSE History Family History Family History: Reviewed,noncontributory to illness, No family hx of Cancer, No family hx of DM, No family hx of Heart jing, No family hx of HTN, No family hx ofKidney jing, No family hx of Liver jing, No family hx of Lung jing, No family hx of Stroke Social History Smoker: Non-Smoker Alcohol: Denies ETOH Use Drugs: Denies Drug Use Lives In: Home All Other Systems: Reviewed and Negative ( PER HPI) Physical Exam General Appearance: No Apparent Distress, Normal HEENT: Normal ENT Inspection, Pharynx Normal, TMs Normal Neck: Full Range of Motion, Non-Tender, Normal, Normal Inspection Respiratory: Chest Non-Tender, Lungs Clear, No Accessory Muscle Use, No Respiratory Distress, Normal Breath Sounds Cardiovascular: No Edema, No JVD, No Murmur, No Gallop, Normal Peripheral Pulses, Regular Rate/Rhythm Breast Exam: Deferred Gastrointestinal: No Organomegaly, Non Tender, No Pulsatile Mass, Normal Bowel Sounds, Soft Genitalia: Deferred Pelvic: Deferred Rectal: Deferred Extremities: No calf tenderness, Normal capillary refill, Normal inspection, Normal range of motion, Non-tender, No pedal edema Musculoskeletal : Location: Left Extremity Location: Ankle Apperance: Tenderness Neurologic: Alert, skin care consultant II-XII nml as Tested, No Motor Deficits, Normal Affect, Normal Mood, No Sensory Deficits Cerebellar Function: Normal Reflexes: Normal Skin: Dry, Normal Color, Warm Lymphatic: No Adenopathy Was a procedure done? Was a procedure done?: No Differential Diagnosis EXT Differential Diagnosis: Sprain, Dislocation, Strain X-Ray, Labs, Meds, VS Vital Signs Date Time Temp Pulse Resp B/P (MAP) Pulse Ox O2 Delivery O2 Flow Rate FiO2 02/04/25 15:49 86 18 98 Room Air 02/04/25 15:49 98.9 89 18 142/86 (104) 98 98.9 02/04/25 13:17 98.8 89 18 143/96 (112) 97 98.8 [facility] [id number] [place] [address] Ph: [phone] DIAGNOSTIC IMAGING Diagnostic Imaging Report : [id number] Signed PATIENT: ROGELIO RANGEL ACCT: [id number] UNIT: [id number] : 1985 LOC: ER ROOM / BED: / AGE / SEX: 39 / F ADM STATUS: REG ER SERVICE 1504 ORDERING PHYSICIAN: JOYCE VARGAS NP PROCEDURE(s): LANKL - L ANKLE 3 VIEW REASON: fracture? lateral malleolus ORDER NUMBER(s): [id number], ACCESSION NUMBER(s): [id number] CLINICAL INDICATION: Trauma TECHNIQUE: 3 radiographic views of the left ankle were obtained. Comparison: None FINDINGS/IMPRESSION: There is no evidence of acute fracture or dislocation. Soft tissue swelling about the lateral ankle. Occult fracture can not be excluded consider repeat radiographs in 7-10 days. ATED BY: STANLEY SAHNI MD DICTATED DATE/TIME: 02/04/25 1538 SIGNED BY: STANLEY SAHNI MD SIGNED DATE/TIME: 02/04/25 1538 CC: X-Ray, Labs, Meds, VS Comment Patient arrives alert and oriented, ABC's intact, afebrile, vital signs stable, saturating well in room air Diagnostic imaging ordered by me and results interpreted by radiology : LEFT ANKLE XR FINDINGS/IMPRESSION: There is no evidence of acute fracture or dislocation. Soft tissue swelling about the lateral ankle. Occult fracture can not be excluded consider repeat radiographs in 7-10 days. History and examination consistent of muscular injury X-rays ordered, read by radiologist and reviewed by me Low likelihood of bony or more serious injury, VSS, pt stable Take IBU w/ food as needed for pain Recommended heat therapy Reviewed RICE management Avoid heavy lifting or strenuous activity Recommended range of motion exercises and limit heavy activity for 1 week If no improvement advised patient to return to the emergency department for follow-up. Discussed possibility of a occult fracture Additional MDM Review of External, Non-ED records: External records reviewed. Discussion with independent historian (EMS, family) history obtained from the patient/parents (if applicable) at bedside Chronic conditions affecting care: None Social determinants of health affecting care: None Consideration of admission (observation or admission): I considered escalation of care to admission for this patient, however given the reassuring workup, the patient is safe for outpatient management. Time of 1ST Reevaluation: 15:30 Reevaluation 1ST: Unchanged Patient Education/Counseling: Diagnosis, Treatment Family Education/Counseling: No Family Present Departure 1 Departure Time of Disposition: 15:44 Impression: Primary Impression: Ankle sprain Qualified Codes: S93.402A - Sprain of unspecified ligament of left ankle, initial encounter Disposition: HOME / SELF CARE / HOMELESS Condition: Stable e-Prescriptions Ibuprofen (Ibuprofen) 800 Mg Tab 1 TAB PO TID for 10 Days, #30 TAB 0 Refills Prov: JOYCE VARGAS NP 02/04/25 Critical Care Note Critical Care Time?: No Stability Stability form required: No Heart Score Heart Score: Heart Score Response (Comments) Value History N/A 0 EKG N/A 0 Age N/A 0 Risk Factors N/A 0 Troponin N/A 0 Total 0 I personally scribed for JOYCE VARGAS NP ([email or web address]) on 02/04/25 at 15:42. Electronically submitted by Sophia Rangel ([email or web address]). I personally scribed for JOYCE VARGAS NP ([email or web address]) on 02/04/25 at 15:53. Electronically submitted by Sophia Rangel ([email or web address]). JOYCE VARGAS NP Feb 04, 2025 15:42
[2025-02-04] MEDS ORDERED: IBUP-1456 PO (15:45)
[2025-02-04 15:49] VITALS: BP 142/86; PULSE 86; RESP 18; TEMP 98.9; O2SAT 98
== END 2025-02-04 15:53 | disposition home or self-care (01) ==
LOC: ER 13:07
DX: S93.492A Sprain of other ligament of left ankle, initial encounter (principal); J45.909 Unspecified asthma, uncomplicated; Z79.84 Long term (current) use of oral hypoglycemic drugs; Z79.899 Other long term (current) drug therapy; Z98.890 Other specified postprocedural states; Z88.1 Allergy status to other antibiotic agents; Z88.2 Allergy status to sulfonamides; Z88.8 Allergy status to other drugs, medicaments and biological substances; X58.XXXA Exposure to other specified factors, initial encounter; Y93.89 Activity, other specified; Y92.89 Other specified places as the place of occurrence of the external cause; Y99.8 Other external cause status
CPT/HCPCS: 73610